=== PATIENT | female | born 1985 | race Caucasian/White ===

== ENCOUNTER 2019-10-06 13:26 | Emergency (ER) | payer OTHER, SELFPAY ==
[2019-10-06 13:28] VITALS: BP 147/90; PULSE 112; RESP 16; TEMP 36.6; O2SAT 99; BMI 19.5
--- NOTE | 2019-10-06 13:34 | EKG12_ITS ---
Test Reason : CP Blood Pressure : / mmHG Vent. Rate : 073 BPM Atrial Rate : 073 BPM P-R Int : 130 ms QRS Dur : 088 ms QT Int : 392 ms P-R-T Axes : 067 079 036 degrees QTc Int : 431 ms Sinus rhythm with marked sinus arrhythmia Nonspecific ST abnormality Abnormal ECG Confirmed by SRI DEVINE, MARIELLA ([id number]), purchase request editor SUNSHINE FLETCHER ([id number]) on 10/08/2019 9:08:37 AM Referred By: AYESHA Confirmed By:MARIELLA FIERRO MD
--- NOTE | 2019-10-06 13:34 | RAD_ITS ---
STUDY: X-RAY CHEST REASON FOR EXAM: Female, 34 years old. Shortness of breath, weakness. TECHNIQUE: Single AP portable view of the chest. COMPARISON: None. FINDINGS: EKG leads overlie the chest The lungs are clear and expanded. There is no demonstrated pleural abnormality. Normal size heart. Normal mediastinum and gloria. Normal visualized pulmonary arteries. Normal visualized aortic arch and descending thoracic aorta. Normal visualized thoracic spine. Normal visualized ribs, clavicles, and shoulders. There is no demonstrated abnormality of the visualized soft tissue structures of the upper abdomen. RAD/Chest 1 View (Portable) IMPRESSION: Normal x-ray examination of the chest. Electronically Signed: Oh Karimi MD at 14:20 EDT , Service support ,
[2019-10-06 14:05] LABS: Basophil# 0.05 X10^3/uL; Basophil% 0.8 % (0-1); Eosinophil# 0.01 X10^3/uL; Eosinophils% 0.2 % (0-5); Hematocrit 40.6 % (37-47); Hemoglobin 13.4 g/dL (12.0-15.0); Lymphocyte % 28.6 % (19-41); Mean Corpuscular Hgb 30.2 pg (27.0-32.0); Mean Corpuscular Volume 91.4 fL (81-99); Mean Platelet Vol. 10.7 fl (6.2-12.0); Monocyte% 6.4 % (0-10); NRBC Flagged by Analyzer 0 % (0-5); Neutrophil # 4.01 X10^3/uL (2.7-7.7); Neutrophil % 63.7 % (47-70); Platelet Count 239 K/mm3 (150-450); RBC Distribution Width CV 13.3 % (11.6-14.6); RBC Distribution Width SD 44.4 fl (35.1-43.9); Red Blood Count 4.44 M/mm3 (4.2-5.4); White Blood Count 6.3 K/mm3 (4.4-11.0)
[2019-10-06 14:14] LABS: Internal QC Validated? YES +Cl - CLEAR BKGD; Pregnancy, Serum, hCG Quali. NEGATIVE Negative
--- NOTE | 2019-10-06 14:15 | ED.DCSUM_ITS ---
- ER Visit Summary Date of Service: 10/06/19 Chief Complaint: Shortness of breath and difficulty sleeping History of Present Illness: The patient is a 34 F with no primary care physician. She reports that August 17 she had a URI and symptoms of COVID. She was around other people with COVID. She states that those things have resolved. However, she continues to have difficulty sleeping. She denies waking from sleep short of breath. She reports that she is having a difficult time falling asleep. Patient reports that she continues to have mild shortness of breath. She denies any fever, chills, or cough. She reports that she has had a left-sided chest pain and right sided lower chest pain that is been constant for the past 2 weeks. It waxes and wanes. 6 out of 10 in severity currently and at worst. It is increased with cold air. There is no change with exertion or deep breaths. Is decreased with liniment. Physical Examination: Vitals: Stable. Afebrile. General: Well-nourished and well-developed. Head: Normocephalic atraumatic. Neck: Supple, no lymphadenopathy. No JVD. Nontender. Cardiovascular: Regular rate and rhythm. No murmurs. Respiratory: No respiratory distress. Clear to auscultation bilaterally. Abdominal: Soft, nontender, nondistended, normal bowel sounds. No guarding, rebound, or peritoneal signs. Back: Nontender. Extremities: Nontender, no edema. Skin: Normal color, no rash. Neurologic: Alert and oriented ?3. Cranial nerves II through XII are intact. Normal strength and sensation. Psych: Normal affect. Test Results: EKG shows marked sinus arrhythmia at [address] changes and T wave marginally 3. CBC is normal. Chem-7 shows a chloride of 108 and BUN of 6. LFTs show an AST of 13. Troponin is negative. BNP is normal. D-dimer is negative. test is negative. TSH is normal. Clinical Impression(s) from Imaging Studies Chest X-Ray 10/06/19 13:34 IMPRESSION: Normal x-ray examination of the chest. Electronically Signed: Oh Karimi MD at 14:20 EDT , Service support , Emergency Department Course and Treatment: Patient was given a 500 cc bolus of normal saline. She is resting comfortably. Treatment Plan: Patient will be discharged with instructions to follow-up with Dr. Stevenson within 1 week for further evaluation and treatment. Return to the emergency department for any worsening symptoms. Disposition: To home in improved and stable condition. Impression: 1. Dyspnea, uncertain cause. This note was generated with [employer] dictation software. It may contain incorrect words, spelling, and punctuation that were not noted in review of the chart prior to signing ED Disposition - Plan for ED Patient: Instructions: ED Dyspnea Referrals: Leanne Stevenson MD [STAFF PHYSICIAN] - 1 Week
[2019-10-06 14:29] LABS: ALB/GLOB Ratio 1.4 RATIO (0.9-2.4); AST(SGOT) 13 U/L (15-37); Alanine Aminotransfer ALT/SGPT 37 U/L (13-56); Albumin, Serum 4.7 g/dL (3.2-5.0); Alkaline Phosphatase 51 U/L (45-117); Anion Gap 6 (5-15); BUN 6 mg/dL (7-18); BUN/Creat Ratio 8.8 RATIO (10-20); Calcium,Total 9.4 mg/dL (8.5-10.1); Chloride 108 mmol/L (98-107); Creatinine, Serum 0.68 mg/dL (0.55-1.02); EST Glomerular Filtration Rate 104 mL/min (>60); Est Glom Filt Rate - Afr Amer 126 mL/min (>60); Estimated Creatinine Clearance 90.95 ml/min; Globulin 3.4 g/dL (2.2-4.2); Glucose 96 mg/dL (74-106); Potassium 3.5 mmol/L (3.5-5.1); Protein, Total 8.1 g/dL (6.4-8.2); Sodium Level 139 mmol/L (136-145); Thyroid Stim Hormone (TSH) 0.68 uIU/mL (0.358-3.74)
[2019-10-06 14:54] VITALS: BP 107/70; PULSE 89; RESP 17; O2SAT 97
[2019-10-06 15:20] VITALS: BP 104/75; PULSE 86; RESP 16; O2SAT 97
== END 2019-10-06 15:21 | disposition home or self-care (01) ==
PROVIDERS: Emergency Provider Emergency Medicine
DX: R06.00 Dyspnea, unspecified (principal); R07.9 Chest pain, unspecified; R19.7 Diarrhea, unspecified; R11.0 Nausea
CPT/HCPCS: 71045; 80053; 83880; 84443; 84484; 84703; 85025; 85379; 93005; 99283; A4216